=== PATIENT | male | born 1985 | race Caucasian/White ===

== ENCOUNTER 2018-02-03 19:42 | Emergency (ER) | payer BC, OTHER ==
--- NOTE | 2018-02-03 20:54 | ERPHSYRPT ---
- History of Present Illness Time Seen by Provider: 02/03/18 20:20 Source: patient Exam Limitations: no limitations Patient Subjective Stated Complaint: states has child at home sick with pneumonia and he isnt feeling well, cough, achy and stomach ache, nausea Triage Nursing Assessment: pt alert and oreitnedx3, lungs sounds clear with some upper respiratory, nasal and oral drainage, skin warm to touch, patient achy all over, able to ambulate by self, gait is steady, skin dry and intact Physician History: 32 y/o white male presents with h/o cough, abdominal cramping, vomiting and diarrhea since this morning. sx worsening. he is unable to hold down fluids. son tx for pneumonia this weekend. pt c/o myalgias and arthralgias. he states he has not urinated much today. Timing/Duration: today Severity: moderate Associated Symptoms: nausea, vomiting, abdominal pain, cough, loss of appetite, malaise, No shortness of breath, No syncope, No seizure Allergies/Adverse Reactions: No Known Drug Allergies Allergy (Unverified 02/03/18 19:54) Hx Tetanus, Diphtheria Vaccination/Date Given: Yes Hx Influenza Vaccination/Date Given: No Hx Pneumococcal Vaccination/Date Given: No Immunizations Up to Date: Yes - Review of Systems Constitutional: No Symptoms Eyes: No Symptoms Ears, Nose, & Throat: No Symptoms Respiratory: Cough Cardiac: No Chest Pain, No Palpitations, No Syncope Abdominal/Gastrointestinal: Abdominal Pain, Nausea, Vomiting, Diarrhea Genitourinary Symptoms: No Symptoms, No Dysuria, No Frequency, No Hematuria Musculoskeletal: Arthralgias Skin: No Symptoms Neurological: No Symptoms Psychological: No Symptoms Endocrine: No Symptoms Hematologic/Lymphatic: No Symptoms Immunological/Allergic: No Symptoms All Other Systems: Reviewed and Negative - Past Medical History Pertinent Past Medical History: Yes Neurological History: No Pertinent History ENT History: No Pertinent History Cardiac History: High Cholesterol, Hypertension Respiratory History: No Pertinent History Endocrine Medical History: Hypothyroidism Musculoskeletal History: No Pertinent History GI Medical History: No Pertinent History History: No Pertinent History Psycho-Social History: No Pertinent History Male Reproductive Disorders: No Pertinent History - Past Surgical History Past Surgical History: Yes Neuro Surgical History: No Pertinent History Cardiac: No Pertinent History Respiratory: No Pertinent History Gastrointestinal: No Pertinent History Genitourinary: No Pertinent History Musculoskeletal: Orthopedic Surgery Male Surgical History: No Pertinent History Other Surgical History: tubes in ears, carpal tunnel right hand, left and right knee - Social History Smoking Status: Never smoker Exposure to second hand smoke: No Drug Use: none Patient Lives Alone: No - Nursing Vital Signs Nursing Vital Signs: Initial Vital Signs Temperature 99.9 F 02/03/18 19:44 Pulse Rate 119 H 02/03/18 19:44 Respiratory Rate 20 02/03/18 19:44 Blood Pressure 123/85 02/03/18 19:44 O2 Sat by Pulse Oximetry 96 02/03/18 19:44 Pain Scale Pain Intensity 5 - Physical Exam General Appearance: mild distress, alert, anxiety Eye Exam: PERRL/EOMI, eyes nml inspection Ears, Nose, Throat Exam: normal ENT inspection, TMs normal, moist mucous membranes Neck Exam: normal inspection, non-tender, supple, full range of motion Respiratory Exam: normal breath sounds, lungs clear, airway intact, No chest tenderness, No respiratory distress, No accessory muscle use, No rhonchi, No wheezing, No stridor Cardiovascular Exam: tachycardia Gastrointestinal/Abdomen Exam: soft, normal bowel sounds, tenderness (mild generalized tendernss), No guarding, No rebound Rectal Exam: not done Back Exam: normal inspection, normal range of motion, No CVA tenderness, No vertebral tenderness Extremity Exam: normal inspection, normal range of motion, pelvis stable Neurologic Exam: alert, oriented x 3, cooperative, 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-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 nml as tested Skin Exam: normal color, warm, dry Lymphatic Exam: No adenopathy SpO2 Interpretation: normal SpO2: 95 Oxygen Delivery: Room Air Ordered Tests: Active Orders 24 hr Category Date Time Status Clean Catch Urine Specimen STAT Care 02/03/18 20:55 Active IV Insertion STAT Care 02/03/18 20:55 Active CHEST 1 VIEW (PORTABLE) Stat Exams 02/03/18 20:56 Taken AMYLASE Stat Lab 02/03/18 21:00 Completed CBC W DIFF Stat Lab 02/03/18 21:00 Completed CMP Stat Lab 02/03/18 21:00 Completed LIPASE Stat Lab 02/03/18 21:00 Completed Lactic Acid Stat Lab 02/03/18 21:10 Results UA W/RFX UR CULTURE Stat Lab 02/03/18 20:25 Completed Medication Summary Generic Name Dose Route Start Last Admin Trade Name Freq PRN Reason Stop Dose Admin Sodium Chloride 500 mls @ 500 mls/hr 11/20/18 22:37 02/03/18 22:40 Sodium Chloride 0.9% 500 Ml IV 02/03/18 23:36 500 mls/hr .Q1H ONE Administration Discontinued Medications Generic Name Dose Route Start Last Admin Trade Name Alex PRN Reason Stop Dose Admin Sodium Chloride 1,000 mls @ 999 mls/hr 02/03/18 20:55 02/03/18 21:06 Sodium Chloride 0.9% 1000 Ml IV 02/03/18 21:55 999 mls/hr .Q1H1M STA Administration Sodium Chloride Confirm 02/03/18 21:04 Sodium Chloride 0.9% 1000 Ml Administered 02/03/18 21:05 Dose 1,000 mls @ ud .ROUTE .STK-MED ONE Sodium Chloride Confirm 02/03/18 22:39 Sodium Chloride 0.9% 500 Ml Administered 02/03/18 22:40 Dose 500 mls @ ud IV .STK-MED ONE Ondansetron HCl 4 mg 02/03/18 20:55 02/03/18 21:05 Zofran 4 Mg/2 Ml Vial IV 02/03/18 20:56 4 mg STAT ONE Administration Ondansetron HCl Confirm 02/03/18 21:04 Zofran 4 Mg/2 Ml Vial Administered 02/03/18 21:05 Dose 4 mg .ROUTE .STK-MED ONE Lab/Rad Data: Laboratory Result Diagrams 02/03/18 21:00 02/03/18 21:00 Laboratory Results 02/03/18 02/03/18 02/03/18 Range/Units 21:10 21:00 21:00 WBC 7.2 (4.0-10.5) K/mm3 RBC 5.36 (4.1-5.6) M/mm3 Hgb 15.0 (12.5-18.0) gm/dl Hct 45.8 (42-50) % MCV 85.4 (78-100) fl MCH 28.0 (26-32) pg MCHC 32.8 (32-36) g/dl RDW 13.9 (11.5-14.0) % Plt Count 154 (150-450) K/mm3 MPV 9.1 (6-9.5) fl Gran % 83.3 H (36.0-66.0) % Eos # (Auto) 0.05 (0-0.5) Absolute Lymphs (auto) 0.74 L (1.0-4.6) Absolute Monos (auto) 0.39 (0.0-1.3) Lymphocytes % 10.3 L (24.0-44.0) % Monocytes % 5.4 (0.0-12.0) % Eosinophils % 0.7 (0.00-5.0) % Basophils % 0.3 (0.0-0.4) % Absolute Granulocytes 6.00 (1.4-6.9) Basophils # 0.02 (0-0.4) Sodium 137 (137-145) mmol/L Potassium 3.6 (3.5-5.1) mmol/L Chloride 103 (98-107) mmol/L Carbon Dioxide 21 L (22-30) mmol/L Anion Gap 16.5 H (5-15) MEQ/L BUN 17 (9-20) mg/dL Creatinine 0.94 (0.66-1.25) mg/dL Estimated GFR > 60.0 ML/MIN Glucose 127 H (74-106) mg/dL Lactic Acid 3.6 H (0.4-2.0) Calcium 8.9 (8.4-10.2) mg/dL Total Bilirubin 1.50 H (0.2-1.3) mg/dL AST 47 (17-59) U/L ALT 54 H (0-50) U/L Alkaline Phosphatase 57 (38-126) U/L Serum Total Protein 7.6 (6.3-8.2) g/dL Albumin 4.4 (3.5-5.0) g/dL Amylase 64 (30-110) U/L Lipase 74 (23-300) U/L Urine Color (YELLOW) Urine Appearance (CLEAR) Urine pH (5-6) Ur Specific [place] (1.005-1.025) Urine Protein (Negative) Urine Ketones (NEGATIVE) Urine Blood (0-5) Pipo/ul Urine Nitrite (NEGATIVE) Urine Bilirubin (NEGATIVE) Urine Urobilinogen (0-1) mg/dL Ur Leukocyte Esterase (NEGATIVE) Urine WBC (Auto) (0-5) /HPF Urine RBC (Auto) (0-2) /HPF U Epithel Cells (Auto) (FEW) /HPF Urine Bacteria (Auto) (NEGATIVE) /HPF Urine Mucus (Auto) (NEGATIVE) /HPF Urine Culture Reflexed (NO) Urine Glucose (NEGATIVE) mg/dL Influenza Type A Ag (NEGATIVE) Influenza Type B Ag (NEGATIVE) RSV (PCR) (Negative) 02/03/18 02/03/18 Range/Units 20:25 20:19 WBC (4.0-10.5) K/mm3 RBC (4.1-5.6) M/mm3 Hgb (12.5-18.0) gm/dl Hct (42-50) % MCV (78-100) fl MCH (26-32) pg MCHC (32-36) g/dl RDW (11.5-14.0) % Plt Count (150-450) K/mm3 MPV (6-9.5) fl Gran % (36.0-66.0) % Eos # (Auto) (0-0.5) Absolute Lymphs (auto) (1.0-4.6) Absolute Monos (auto) (0.0-1.3) Lymphocytes % (24.0-44.0) % Monocytes % (0.0-12.0) % Eosinophils % (0.00-5.0) % Basophils % (0.0-0.4) % Absolute Granulocytes (1.4-6.9) Basophils # (0-0.4) Sodium (137-145) mmol/L Potassium (3.5-5.1) mmol/L Chloride (98-107) mmol/L Carbon Dioxide (22-30) mmol/L Anion Gap (5-15) MEQ/L BUN (9-20) mg/dL Creatinine (0.66-1.25) mg/dL Estimated GFR ML/MIN Glucose (74-106) mg/dL Lactic Acid (0.4-2.0) Calcium (8.4-10.2) mg/dL Total Bilirubin (0.2-1.3) mg/dL AST (17-59) U/L ALT (0-50) U/L Alkaline Phosphatase (38-126) U/L Serum Total Protein (6.3-8.2) g/dL Albumin (3.5-5.0) g/dL Amylase (30-110) U/L Lipase (23-300) U/L Urine Color YELLOW (YELLOW) Urine Appearance CLEAR (CLEAR) Urine pH 5.0 (5-6) Ur Specific [place] 1.027 (1.005-1.025) Urine Protein NEGATIVE (Negative) Urine Ketones NEGATIVE (NEGATIVE) Urine Blood NEGATIVE (0-5) Pipo/ul Urine Nitrite NEGATIVE (NEGATIVE) Urine Bilirubin NEGATIVE (NEGATIVE) Urine Urobilinogen NEGATIVE (0-1) mg/dL Ur Leukocyte Esterase NEGATIVE (NEGATIVE) Urine WBC (Auto) NONE (0-5) /HPF Urine RBC (Auto) NONE (0-2) /HPF U Epithel Cells (Auto) NONE (FEW) /HPF Urine Bacteria (Auto) NONE SEEN (NEGATIVE) /HPF Urine Mucus (Auto) SLIGHT (NEGATIVE) /HPF Urine Culture Reflexed NO (NO) Urine Glucose NEGATIVE (NEGATIVE) mg/dL Influenza Type A Ag NEGATIVE (NEGATIVE) Influenza Type B Ag NEGATIVE (NEGATIVE) RSV (PCR) NEGATIVE (Negative) - Progress Progress: improved, re-examined Progress Note: 02/03/18 23:14 cxr-no acute process. Counseled pt/family regarding: lab results, diagnosis, need for follow-up, rad results - Departure Time of Disposition: 23:14 Departure Disposition: Home Clinical Impression: Viral illness Condition: Stable Critical Care Time: No Referrals: SANDRINE RUSSELL MD [Primary Care Provider] - Additional Instructions: drink plenty of fluids. use tylenol and ibuprofen for pain. follow up with primary doctor for persistent symptoms. Prescriptions: Ondansetron HCl [Zofran] 4 mg PO TID PRN #10 tablet PRN Reason: Nausea/Vomiting
[2018-02-03] MEDS ORDERED: Zofran 4 MG/2 ML VIAL IV ONE (20:55)
[2018-02-03] MEDS ORDERED: Sodium Chloride 0.9% 1000 ML 1,000 ML IV STA (20:55)
[2018-02-03 20:59] LABS: INFLUENZA A NEGATIVE (NEGATIVE); INFLUENZA B NEGATIVE (NEGATIVE); RESPIRATORY SYNCTIAL VIRUS NEGATIVE (Negative)
[2018-02-03 21:04] LABS: BASOPHIL % 0.3 % (0.0-0.4); Basophil (Absolute #) 0.02 (0-0.4); Eosinophil % 0.7 % (0.00-5.0); Eosinophil (Absolute #) 0.05 (0-0.5); Granulocytes % 83.3 % (36.0-66.0); Hematocrit 45.8 % (42-50); Lymphocyte (Absolute #) 0.74 (1.0-4.6); Lymphocytes % 10.3 % (24.0-44.0); Mean Cell Volume 85.4 fl (78-100); Mean Corpuscular Hgb Concent. 32.8 g/dl (32-36); Mean Platelet Volume 9.1 fl (6-9.5); Monocyte (Absolute #) 0.39 (0.0-1.3); Monocytes % 5.4 % (0.0-12.0); Platelet Count 154 K/mm3 (150-450); Red Blood Count 5.36 M/mm3 (4.1-5.6); Red Cell Distribution Width 13.9 % (11.5-14.0); White Blood Count 7.2 K/mm3 (4.0-10.5)
[2018-02-03] MEDS ORDERED: Zofran 4 MG/2 ML VIAL ONE (21:04)
[2018-02-03] MEDS ORDERED: Sodium Chloride 0.9% 1000 ML 1,000 ML ONE (21:04)
[2018-02-03 21:09] LABS: ALBUMIN 4.4 g/dL (3.5-5.0); ALKALINE PHOSPHATASE 57 U/L (38-126); AMYLASE 64 U/L (30-110); ANION GAP 16.5 MEQ/L (5-15); BLOOD UREA NITROGEN 17 mg/dL (9-20); CHLORIDE 103 mmol/L (98-107); Calcium 8.9 mg/dL (8.4-10.2); Carbon Dioxide 21 mmol/L (22-30); Creatinine 1 0.94 mg/dL (0.66-1.25); Glucose 127 mg/dL (74-106); LIPASE 74 U/L (23-300); Potassium 3.6 mmol/L (3.5-5.1); SGOT/AST 47 U/L (17-59); SGPT/ALT 54 U/L (0-50); SODIUM 137 mmol/L (137-145); Total Protein 7.6 g/dL (6.3-8.2)
[2018-02-03 21:14] LABS: Lactic Acid 3.6 (0.4-2.0)
[2018-02-03 21:22] VITALS: BP 117/72
[2018-02-03 21:59] VITALS: PULSE 92
[2018-02-03 22:35] LABS: Appearance CLEAR (CLEAR); Bilirubin NEGATIVE (NEGATIVE); Blood NEGATIVE Ery/ul (0-5); Glucose NEGATIVE (NEGATIVE); Ketones NEGATIVE (NEGATIVE); Leukocyte Esterase NEGATIVE (NEGATIVE); Nitrite NEGATIVE (NEGATIVE); Protein,Urine Dip NEGATIVE (Negative); Specific Gravity 1.027 (1.005-1.025); Urobilinogen NEGATIVE mg/dL (0-1)
[2018-02-03] MEDS ORDERED: Sodium Chloride 0.9% 500 ML 500 ML IV ONE ×2 (22:37→22:39)
[2018-02-03 23:16] VITALS: O2SAT 95
--- NOTE | 2018-02-04 09:34 | XRAY ---
Indication: Fever and cough. Comparison: None Single PA chest demonstrates normal heart, lungs, and bony thorax.
== END 2018-02-03 23:24 | disposition home or self-care (01) ==
LOC: ED 19:42
DX: B34.9 Viral infection, unspecified (principal); R11.2 Nausea with vomiting, unspecified; R10.9 Unspecified abdominal pain; R05 Cough
CPT/HCPCS: 36000; 36415; 71045; 80053; 81001; 82150; 83605; 83690; 85025; 87631; 96360; 96361; 96374; 99284; J2405

== ENCOUNTER 2018-04-01 16:04 | Emergency (ER) | payer BC, OTHER ==
--- NOTE | 2018-04-01 16:48 | ERPHSYRPT ---
- History of Present Illness Time Seen by Provider: 04/01/18 16:41 Source: patient Exam Limitations: no limitations Patient Subjective Stated Complaint: states for one week has had some bright red bleeding with bowel movement. states has gotten worse over the past two days. Triage Nursing Assessment: ambulated to room per self. skin w/d, color normal, resp easy. a/o times three. Physician History: 32-year-old white male arrives with complaint of intermittent blood in his stools for 2 weeks he states the last 5 days he's had blood every time he has a bowel movement. States he has pain in his rectum. No nausea no vomiting. Patient states he is not on any aspirin products. Past medical history includes hypercholesterolemia, high blood pressure Past surgical history includes orthopedic surgery, myringotomy tubes, carpal tunnel, left and right knee surgery, cyst and testicle removed. Timing/Duration: week(s) (2-3 weeks worse past week) Severity: moderate Modifying Factors: Improves With: other (occurs with bowel movement) Associated Symptoms: other (Rectal pain), No nausea, No vomiting, No abdominal pain, No shortness of breath, No heartburn, No diaphoresis, No cough, No chills , No chest pain, No fever, No headaches, No loss of appetite, No malaise, No rash, No syncope, No seizure, No weakness Allergies/Adverse Reactions: No Known Drug Allergies Allergy (Verified 04/01/18 16:14) Home Medications: Buspirone HCl 5 mg PO BID 04/01/18 [History] Losartan/Hydrochlorothiazide [Losartan-Hctz 50-12.5 mg Tab] 1 ea PO DAILY [History] PARoxetine HCl [Paroxetine HCl] 10 mg PO DAILY 04/01/18 [History] Hx Tetanus, Diphtheria Vaccination/Date Given: Yes Hx Influenza Vaccination/Date Given: No Hx Pneumococcal Vaccination/Date Given: No - Review of Systems Constitutional: No Fever, No Chills Eyes: No Symptoms Ears, Nose, & Throat: No Symptoms Respiratory: No Cough, No Dyspnea Cardiac: No Chest Pain, No Edema, No Syncope Abdominal/Gastrointestinal: Hematochezia, No Abdominal Pain, No Nausea, No Vomiting, No Diarrhea, No Constipation, No Hematemesis, No Melena, No Dysphagia , No Appetite Changes Genitourinary Symptoms: No Dysuria Musculoskeletal: No Back Pain, No Neck Pain Skin: No Rash Neurological: No Dizziness, No Focal Weakness, No Sensory Changes Psychological: No Symptoms Endocrine: No Symptoms All Other Systems: Reviewed and Negative - Past Medical History Pertinent Past Medical History: Yes Neurological History: No Pertinent History ENT History: No Pertinent History Cardiac History: High Cholesterol, Hypertension Respiratory History: No Pertinent History Endocrine Medical History: Hypothyroidism Musculoskeletal History: No Pertinent History GI Medical History: No Pertinent History History: No Pertinent History Psycho-Social History: No Pertinent History Male Reproductive Disorders: No Pertinent History - Past Surgical History Past Surgical History: Yes Neuro Surgical History: No Pertinent History Cardiac: No Pertinent History Respiratory: No Pertinent History Gastrointestinal: No Pertinent History Genitourinary: No Pertinent History Musculoskeletal: Orthopedic Surgery Male Surgical History: No Pertinent History Other Surgical History: tubes in ears, carpal tunnel right hand, left and right knee, cyst and testicle removal - Social History Smoking Status: Never smoker Exposure to second hand smoke: No Drug Use: none Patient Lives Alone: No - Nursing Vital Signs Nursing Vital Signs: Initial Vital Signs Temperature 98.4 F 04/01/18 16:07 Pulse Rate 78 04/01/18 16:07 Respiratory Rate 16 04/01/18 16:07 Blood Pressure 175/112 04/01/18 16:07 O2 Sat by Pulse Oximetry 99 04/01/18 16:07 Pain Scale Pain Intensity 0 - Physical Exam General Appearance: no apparent distress, alert Eye Exam: PERRL/EOMI, eyes nml inspection Ears, Nose, Throat Exam: normal ENT inspection, TMs normal, pharynx normal, moist mucous membranes Neck Exam: normal inspection, non-tender, supple, full range of motion Respiratory Exam: normal breath sounds, lungs clear, No respiratory distress Cardiovascular Exam: regular rate/rhythm, normal heart sounds, normal peripheral pulses, capillary refill <2 sec Gastrointestinal/Abdomen Exam: soft, normal bowel sounds, No tenderness, No mass Rectal Exam: hemorrhoids, other (brown stool), No black stool Back Exam: normal inspection, normal range of motion, No CVA tenderness, No vertebral tenderness Extremity Exam: normal inspection, normal range of motion, pelvis stable Neurologic Exam: alert, oriented x 3, cooperative, snow remover II-XII nml as tested, normal mood/affect, nml cerebellar function, nml station & gait, sensation nml, No motor deficits Skin Exam: normal color, warm, dry, No rash SpO2 Interpretation: normal (99%) SpO2: 99 Oxygen Delivery: Room Air - Course Nursing assessment & vital signs reviewed: Yes Ordered Tests: Active Orders 24 hr Category Date Time Status IV Insertion STAT Care 04/01/18 16:44 Active Orthostatic Vital Signs STAT Care 04/01/18 16:53 Active CBC W DIFF Stat Lab 04/01/18 16:55 Completed CMP Stat Lab 04/01/18 16:55 Completed Occult Blood,Stool Other Stat Lab 04/01/18 16:55 Completed PROTIME WITH INR Stat Lab 04/01/18 16:55 Received PTT Stat Lab 04/01/18 16:55 Received Lab/Rad Data: Laboratory Result Diagrams 04/01/18 16:55 04/01/18 16:55 Laboratory Results 04/01/18 04/01/18 04/01/18 Range/Units 16:55 16:55 16:55 WBC 7.3 (4.0-10.5) K/mm3 RBC 5.57 (4.1-5.6) M/mm3 Hgb 15.3 (12.5-18.0) gm/dl Hct 46.3 (42-50) % MCV 83.1 (78-100) fl MCH 27.5 (26-32) pg MCHC 33.0 (32-36) g/dl RDW 13.8 (11.5-14.0) % Plt Count 177 (150-450) K/mm3 MPV 9.1 (6-9.5) fl Gran % 53.3 (36.0-66.0) % Eos # (Auto) 0.24 (0-0.5) Absolute Lymphs (auto) 2.41 (1.0-4.6) Absolute Monos (auto) 0.73 (0.0-1.3) Lymphocytes % 32.9 (24.0-44.0) % Monocytes % 10.0 (0.0-12.0) % Eosinophils % 3.3 (0.00-5.0) % Basophils % 0.5 (0.0-0.4) % Absolute Granulocytes 3.90 (1.4-6.9) Basophils # 0.04 (0-0.4) Sodium 139 (137-145) mmol/L Potassium 3.9 (3.5-5.1) mmol/L Chloride 103 (98-107) mmol/L Carbon Dioxide 25 (22-30) mmol/L Anion Gap 15.0 (5-15) MEQ/L BUN 11 (9-20) mg/dL Creatinine 0.89 (0.66-1.25) mg/dL Estimated GFR > 60.0 ML/MIN Glucose 94 (74-106) mg/dL Calcium 9.7 (8.4-10.2) mg/dL Total Bilirubin 1.90 H (0.2-1.3) mg/dL AST 130 H (17-59) U/L ALT 137 H (0-50) U/L Alkaline Phosphatase 56 (38-126) U/L Serum Total Protein 8.4 H (6.3-8.2) g/dL Albumin 4.6 (3.5-5.0) g/dL Stool Occult Blood NEGATIVE (Negative) - Progress Progress: improved Progress Note: 04/01/18 17:23 32-year-old white male arrives with complaint of blood in his stools off and on for 2-3 weeks worse over the last week. On physical examination patient does have one hemorrhoid that does not appear to be thrombosed. Rectal examination no blood is noted brown stool no masses. Patient hemoglobin and hematocrit are stable. Patient with mild increase in his liver functions. I discussed case with Dr. Russell Will release patient. Will have him follow-up with Dr. Russell. - Departure Time of Disposition: 17:24 Departure Disposition: Home Clinical Impression: Rectal bleeding, Elevated liver enzymes Condition: Fair Critical Care Time: No Referrals: SANDRINE RUSSELL MD [Primary Care Provider] - Additional Instructions: Return home. Plenty of fluids. Follow-up with Dr. Russell. Call and schedule follow-up appointment. Return for acute distress or for severe symptoms.
[2018-04-01 17:00] LABS: BASOPHIL % 0.5 % (0.0-0.4); Basophil (Absolute #) 0.04 (0-0.4); Eosinophil % 3.3 % (0.00-5.0); Eosinophil (Absolute #) 0.24 (0-0.5); Granulocytes % 53.3 % (36.0-66.0); Hematocrit 46.3 % (42-50); Hemoglobin 15.3 gm/dl (12.5-18.0); Lymphocyte (Absolute #) 2.41 (1.0-4.6); Lymphocytes % 32.9 % (24.0-44.0); Mean Cell Volume 83.1 fl (78-100); Mean Corpuscular Hemoglobin 27.5 pg (26-32); Mean Platelet Volume 9.1 fl (6-9.5); Monocyte (Absolute #) 0.73 (0.0-1.3); Platelet Count 177 K/mm3 (150-450); Red Blood Count 5.57 M/mm3 (4.1-5.6); Red Cell Distribution Width 13.8 % (11.5-14.0); White Blood Count 7.3 K/mm3 (4.0-10.5)
[2018-04-01 17:08] VITALS: BP 134/94; PULSE 76
[2018-04-01 17:11] LABS: ALBUMIN 4.6 g/dL (3.5-5.0); ALKALINE PHOSPHATASE 56 U/L (38-126); BLOOD UREA NITROGEN 11 mg/dL (9-20); CHLORIDE 103 mmol/L (98-107); Calcium 9.7 mg/dL (8.4-10.2); Carbon Dioxide 25 mmol/L (22-30); Creatinine 1 0.89 mg/dL (0.66-1.25); Glucose 94 mg/dL (74-106); Potassium 3.9 mmol/L (3.5-5.1); SGOT/AST 130 U/L (17-59); SGPT/ALT 137 U/L (0-50); SODIUM 139 mmol/L (137-145); Total Protein 8.4 g/dL (6.3-8.2)
[2018-04-01 17:19] LABS: INR 0.98 (0.8-3.0); PROTIME 11.4 SECONDS (8.83-12.87)
[2018-04-01 17:22] LABS: PTT 30.5 SECONDS (24.1-36.1)
[2018-04-01 17:25] VITALS: O2SAT 99
== END 2018-04-01 17:36 | disposition home or self-care (01) ==
LOC: ED 16:04
DX: K62.5 Hemorrhage of anus and rectum (principal); R74.8 Abnormal levels of other serum enzymes; I10 Essential (primary) hypertension; E78.00 Pure hypercholesterolemia, unspecified; E03.9 Hypothyroidism, unspecified; Z79.899 Other long term (current) drug therapy
CPT/HCPCS: 36000; 36415; 80053; 82272; 85025; 85610; 85730; 99284